=== PATIENT | male | born 1985 | race Caucasian/White ===

== ENCOUNTER 2024-01-04 15:17 | Emergency (ER) | payer OTHER ==
[2024-01-04 15:29] VITALS: RESP 18; BMI 27.9
[2024-01-04] MEDS ORDERED: ACETAMINOPHEN INJECTION 100 ML IVPB ONE (16:51)
[2024-01-04] MEDS: ACETAMINOPHEN 1000 MG/100 ML BAG IVPB ONE (16:59)
[2024-01-04] MEDS ORDERED: MAG HYDROX/AL HYDROX/SIMETH 30 ML UNIT-DOSE CUP ONE (17:00)
[2024-01-04] MEDS ORDERED: FAMOTIDINE 20 MG TABLET ONE (17:00)
[2024-01-04] MEDS: MAG HYDROX/AL HYDROX/SIMETH 30 ML UNIT-DOSE CUP PO ONE (17:02)
[2024-01-04] MEDS: FAMOTIDINE 10 MG TABLET PO ONE (17:02)
[2024-01-04 17:23] LABS: HEMATOCRIT 47.4 % (35.4-49); HEMOGLOBIN 15.9 GM/dL (11.7-16.9); MCH 30.2 pg (25.7-33.7); MCHC 33.5 g/dl (32.0-35.9); MEAN CELL VOLUME 90.1 fl (80-96); MEAN PLT VOLUME 8.7 fl (7.5-11.1); PLATELET COUNT 262 10^3/uL (134-434); RBC 5.27 M/mm3 (4.00-5.60); WHITE BLOOD COUNT 25.2 K/mm3 (4.0-10.0)
[2024-01-04] MEDS: SODIUM CHLORIDE 0.9% 500 ML INFUS.BAG IV ONE (17:30)
[2024-01-04 17:36] LABS: BLOOD UREA NITROGEN 17.8 mg/dL (7-18); CALCIUM 8.9 mg/dL (8.5-10.1)
[2024-01-04 17:37] LABS: ALBUMIN 3.9 g/dl (3.4-5.0)
[2024-01-04 17:40] LABS: CREATININE 1.2 mg/dL (0.55-1.3)
[2024-01-04 17:41] LABS: TOT PROT 7.6 g/dl (6.4-8.2)
[2024-01-04 18:48] LABS: OVALOCYTE 1+
[2024-01-04 18:55] LABS: PLATELET ESTIMATE ADEQUATE
[2024-01-04 21:58] VITALS: BP 106/52; PULSE 66; TEMP 98.6
[2024-01-04] MEDS ORDERED: AMOX TR/POT CLAV 875MG/125MG TABLETS (FP) ONE (22:13)
[2024-01-04] MEDS: AMOX TR/POT CLAV 875MG/125MG TABLETS (FP) PO ONE (22:16)
[2024-01-04 22:40] LABS: EPI CELLS 6 /uL (0-25.1); HYALINE CASTS 0 /uL (0-3.1); URINE APPEARANCE CLEAR; URINE BACTERIA 6 /uL (0-1359); URINE BILIRUBIN NEGATIVE (NEGATIVE); URINE COLOR YELLOW; URINE GLUCOSE (UA) NEGATIVE (NEGATIVE); URINE KETONE NEGATIVE (NEGATIVE); URINE LEUK ESTERASE NEGATIVE (NEGATIVE); URINE NITRITE NEGATIVE (NEGATIVE); URINE PROTEIN 1+ (NEGATIVE); URINE RBC 20 /uL (0-23.9); URINE UROBILINOGEN 0.2 mg/dL (0.2-1.0); URINE WBC 8 /uL (0-25.8)
== END 2024-01-04 22:25 | disposition home or self-care (01) ==
LOC: JER 15:17
PROC: 3E030NZ Introduction of Analgesics, Hypnotics, Sedatives into Peripheral Vein, Open Approach (ICD-10-PCS; principal; 2024-01-04)
DX: R10.13 Epigastric pain (principal); R51.9 Headache, unspecified; R50.9 Fever, unspecified; D72.829 Elevated white blood cell count, unspecified; Z20.822 Contact with and (suspected) exposure to COVID-19
CPT/HCPCS: 0241U-QW; 36415; 71046-TC-FY; 74177-TC; 80053; 81003; 83690; 85025; 87040; 87086; 99285-25; J0131; Q9967

== ENCOUNTER 2024-08-16 21:34 | Emergency (ER) | payer OTHER ==
[2024-08-16 21:43] VITALS: BP 131/77; BMI 25.8
[2024-08-16] MEDS ORDERED: ALBUTEROL SO4 2.5/IPRATROPIUM 0.5 INH SOL 3 ML VIAL.NEB. NEB ONE (22:19)
[2024-08-16] MEDS ORDERED: predniSONE 20 MG TABLET (UD) ONE (22:19)
[2024-08-16] MEDS ORDERED: predniSONE 10 MG TABLET (UD) ONE (22:20)
[2024-08-16] MEDS: ALBUTEROL SO4 2.5/IPRATROPIUM 0.5 INH SOL 3 ML VIAL.NEB. NEB SCH (22:26)
[2024-08-16] MEDS: FLUTICASONE PROP 0.05% 16 GM NASAL SPRAY NS ONE (22:59)
[2024-08-16] MEDS: predniSONE 20 MG TABLET (UD) PO ONE (23:04)
[2024-08-16] MEDS: DEXAMETHASONE SOD PHOSPHATE 10 MG/1 ML VIAL IVPUSH ONE (23:10)
[2024-08-16] MEDS ORDERED: ACETAMINOPHEN 500 MG TABLET (FP) ONE (23:21)
[2024-08-16] MEDS ORDERED: ALBUTEROL SO4 0.083% IH SOL 2.5 MG/3 ML VIAL.NEB. NEB ONE (23:24)
[2024-08-16] MEDS: ACETAMINOPHEN 500 MG TABLET (FP) PO ONE (23:27)
[2024-08-16] MEDS: ALBUTEROL SO4 0.083% IH SOL 2.5 MG/3 ML VIAL.NEB. NEB ONE (23:27)
[2024-08-16] MEDS: ALBUTEROL SO4 0.5 % INH SOLN 2.5 MG/0.5 ML VIAL.NEB. NEB ONE (23:27)
[2024-08-17 00:20] VITALS: PULSE 110; RESP 19; TEMP 99.4
[2024-08-17] MEDS ORDERED: predniSONE 20 MG TABLET (UD) PO ONE (10:00)
== END 2024-08-17 00:20 | disposition home or self-care (01) ==
LOC: JER 21:34
PROC: 3E0F7GC Introduction of Other Therapeutic Substance into Respiratory Tract, Via Natural or Artificial Opening (ICD-10-PCS; principal; 2024-08-16)
PROC: 3E0F7GC Introduction of Other Therapeutic Substance into Respiratory Tract, Via Natural or Artificial Opening (ICD-10-PCS; 2024-08-16)
DX: J45.901 Unspecified asthma with (acute) exacerbation (principal); R05.9 Cough, unspecified; R07.89 Other chest pain
CPT/HCPCS: 99284-25